=== PATIENT | male | born 1940 | race Caucasian/White ===

== ENCOUNTER 2018-11-16 06:50 | Inpatient (IN) ==
[2018-11-16 07:19] LABS: Hematocrit 47.6 % (42.0-52.0); Hemoglobin 16.3 gm/dL (13.5-18.0); Mean Corpuscular Hemoglobin 32.9 pg (27-31); Mean Corpuscular Hgb Conc 34.2 g/dl (32-36); Neutrophil # 6.8 K/mm3 (1.3-6.0); Platelet Count 121 K/mm3 (150-450); Red Blood Count 4.96 M/mm3 (4.7-6.0); Red Cell Distribution Width 13.9 % (11.5-14.0); White Blood Count 7.9 K/mm3 (4.0-10.5)
[2018-11-16] MEDS ORDERED: MORPHINE SULFATE 2 MG/ML DISP.SYRIN IV ONE (07:28)
[2018-11-16] MEDS ORDERED: ONDANSETRON HCL/PF 2 MG/ML VIAL IV ONE ×2 (07:28→10:41)
--- NOTE | 2018-11-16 07:30 | ERNOTE ---
<Christian Browning - Last Filed: 11/16/18 07:52> Abdominal HPI - General Chief Complaint: Abdominal Pain Time Seen by Provider: 11/16/18 07:17 Source: patient Exam Limitations: no limitations - Immun/Allergies/Home Medications Immunizatons: IMMUNIZATION HX Immunizations Up to Date Yes History of Influenza Vaccine No Hx Pneumococcal Vaccination No Allergies/Adverse Reactions: Allergies peanut Allergy (Severe, Verified 11/16/18 07:00) THROAT SWELLS SHUT codeine Adverse Reaction (Mild, Verified 11/16/18 07:00) BINDING Home Medications: HOME MEDICATIONS Multivitamin [Multi Vitamin Daily] 1 ea PO DAILY 01/14/14 [Last Taken Unknown] tramadol 50 mg tablet 50 mg PO BID tab 03/30/18 [Last Taken Unknown] diphenoxylate-atropine 2.5 mg-0.025 mg tablet 2 tab PO ACHS #360 tab 09/27/18 [Last Taken Unknown] fluoxetine 20 mg capsule 20 mg PO DAILY #90 cap 09/28/18 [Last Taken Unknown] - History of Present Illness Narrative: Pt had onset of abdominal pain last night after eating salmon. continues this am Timing: intermittent Quality: moderate, severe, fullness Modifying Factors - (Improves): Present: movement Modifying Factors - (Worsens): Present: lying down Associated Symptoms: Present: nausea, vomiting Review of Systems - Review of Systems Constitutional: Absent: recent illness, fever, chills ENT: Absent: nose congestion, nasal drainage Respiratory: Absent: shortness of breath, cough Cardiology: Absent: chest pain Gastrointestinal/Abdominal: Present: See HPI, nausea, vomiting, abdominal pain Genitourinary: Absent: frequency, pain, dysuria Musculoskeletal: Absent: back pain Skin: Absent: rash Neurological: Absent: headache, dizziness/light-headedness Endocrine: Present: excessive sweating - only when vomiting this am Hematologic/Lymphatic: Absent: swollen glands Medical History (Last Reviewed 11/16/18 @ 07:26 by Christian Browning DO) Osteoarthritis (Chronic) Onset Date: Unknown IBS (irritable bowel syndrome) (Chronic) Onset Date: Unknown Fibromyalgia (Chronic) Onset Date: Unknown Esophageal stenosis (Chronic) Onset Date: Unknown Diverticulitis of colon (Chronic) Onset Date: Unknown Pierre's esophagus (Chronic) Onset Date: Unknown Asthma (Chronic) Onset Date: Unknown Anxiety disorder (Chronic) Onset Date: ~09/30/12 DJD (degenerative joint disease) Onset Date: Unknown Cancer Onset Date: ~2008 DVT (deep venous thrombosis) Onset Date: ~11/27/13 Dysphagia Onset Date: Unknown Surgical History: Surgical History (Last Reviewed 11/16/18 @ 07:26 by Christian Browning DO) History of cholecystectomy Onset Date: ~2006 History of colon resection Onset Date: ~2008 History of colonoscopy Onset Date: ~10/09/08 History of esophagogastroduodenoscopy (EGD) Onset Date: Unknown History of rectal surgery Onset Date: ~2015 History of toe surgery Onset Date: ~08/2018 History of tonsillectomy Onset Date: Unknown History of total left knee replacement Onset Date: ~11/14/14 Family History: Family History (Last Reviewed 11/16/18 @ 07:26 by Christian Browning DO) Father Myocardial infarction CHF (congestive heart failure) Mother Cancer lung Duodenal anomaly Social History: Preferred Language Danish Do you have any catholic or No cultural preference? Smoking Status Former smoker Have you smoked in the past 12 No months Do you dip or chew tobacco No Alcohol Use occasionally Drug Use none (Last Updated 10/19/18 @ 15:50 by Blank Krueger MD) No Social History Section defined Physical Exam - Physical Exam General Appearance: Present: wd/wn, alert, mild distress Head Exam: Present: normal inspection, no evidence of injury Eye Exam: Normal inspection: bilateral Neck: Present: normal inspection, nontender, supple Respiratory: Present: no respiratory distress, no accessory muscle use, chest nontender, lungs clear Cardiovascular/Chest: Present: regular rate, rhythm, no murmur Gastrointestinal/Abdominal: Present: tenderness - LLQ, RLQ and mild in the epigastrium, abnormal bowel sounds - slightly hyperactive, guarding - mild. Absent: distended, rebound Extremity Exam: Present: normal inspection, normal range of motion, no edema Neurological Exam: Present: alert, oriented, normal mood/affect, no motor/sensory deficits Skin Exam: Present: normal color, warm/dry Lymphatic Exam: Present: no adenopathy Progress - Results and Orders Patient's Lab Results:: I have reviewed the patient's lab results. - Vital Signs Vital Signs: Vital Signs 11/16/18 06:56 Temperature 36.0 C Pulse Rate 81 Respiratory Rate 16 Blood Pressure 155/97 H O2 Sat by Pulse Oximetry 97 - X-Ray X-Ray #1 X-Ray: abdomen Interpretation: Reviewed by me X-ray Comments: IMPRESSION: ABNORMAL BOWEL GAS PATTERN CONSISTENT WITH SMALL BOWEL OBSTRUCTION. Electronically signed by Osman Gold D.O.. - Progress/Reassessment Chief Complaint: Abdominal Pain - Transfer of Care Physician Sign Out: Christian Browning Receiving Physician: Solomon Dow Pending Results: CT/MRI results Expected Disposition: Admit Departure Clinical Impression: Small bowel obstruction - Departure Disposition: Still a patient Condition: Fair Referrals: Blank Krueger MD [Primary Care Provider] - <Solomon Dow - Last Filed: 11/16/18 11:21> Abdominal HPI - Narrative Date of Service: 11/16/18 - Immun/Allergies/Home Medications Immunizatons: IMMUNIZATION HX Immunizations Up to Date Yes History of Influenza Vaccine No Hx Pneumococcal Vaccination No Medical History (Last Reviewed 11/16/18 @ 07:26 by Christian Browning DO) Osteoarthritis (Chronic) Onset Date: Unknown IBS (irritable bowel syndrome) (Chronic) Onset Date: Unknown Fibromyalgia (Chronic) Onset Date: Unknown Esophageal stenosis (Chronic) Onset Date: Unknown Diverticulitis of colon (Chronic) Onset Date: Unknown Pierre's esophagus (Chronic) Onset Date: Unknown Asthma (Chronic) Onset Date: Unknown Anxiety disorder (Chronic) Onset Date: ~09/30/12 DJD (degenerative joint disease) Onset Date: Unknown Cancer Onset Date: ~2008 DVT (deep venous thrombosis) Onset Date: ~11/27/13 Dysphagia Onset Date: Unknown Surgical History: Surgical History (Last Reviewed 11/16/18 @ 07:26 by Christian Browning DO) History of cholecystectomy Onset Date: ~2006 History of colon resection Onset Date: ~2008 History of colonoscopy Onset Date: ~10/09/08 History of esophagogastroduodenoscopy (EGD) Onset Date: Unknown History of rectal surgery Onset Date: ~2015 History of toe surgery Onset Date: ~08/2018 History of tonsillectomy Onset Date: Unknown History of total left knee replacement Onset Date: ~11/14/14 Family History: Family History (Last Reviewed 11/16/18 @ 07:26 by Christian Browning DO) Father Myocardial infarction CHF (congestive heart failure) Mother Cancer lung Duodenal anomaly Social History: Preferred Language Danish Do you have any catholic or No cultural preference? Smoking Status Former smoker Have you smoked in the past 12 No months Do you dip or chew tobacco No Alcohol Use occasionally Drug Use none (Last Updated 10/19/18 @ 15:50 by Blank Krueger MD) No Social History Section defined Progress - Date and Time Seen: Date and Time: 11/16/18 11:19 patient improved, discussed labs and x-rays with patient, case discussed with dr lombardi who accepts patient for admissiion - Vital Signs Patient's Vital Signs:: I have reviewed the patient's vital signs. Vital Signs: Vital Signs 11/16/18 06:56 11/16/18 07:30 11/16/18 08:00 Temperature 36.0 C Pulse Rate 81 82 83 Respiratory Rate 16 15 15 Blood Pressure 155/97 H 178/85 H 185/93 H O2 Sat by Pulse Oximetry 97 96 96 11/16/18 10:30 Temperature Pulse Rate 87 Respiratory Rate 15 Blood Pressure 190/85 H O2 Sat by Pulse Oximetry 95 - CT/Ultrasound CT/Ultrasound Narrative: small bowel obstruction Plan - Plan Plan: to admit to observation.
[2018-11-16 07:33] LABS: Anion Gap 13.5 mmol/L (6.8-13.8); BUN/Creatinine Ratio 15.3 (9.0-21.6); Bilirubin, Total 1.3 mg/dL (0.0-1.1); Ca. Corrected For Albumin 9.3 mg/dL (8.4-10.2); Calcium * 9.6 mg/dL (7.9-10.9); Potassium 4.5 mmol/L (3.4-4.6); Total Protein 7.9 gm/dL (6.2-8.2)
[2018-11-16] MEDS ORDERED: DIATRIZOATE MEGLUMINE, SODIUM 30 ML BTL PO ONE (08:05)
[2018-11-16] MEDS ORDERED: NORMAL SALINE 1,000 ML IV ONE (08:16)
[2018-11-16 09:57] LABS: Urine Bilirubin Negative (NEGATIVE); Urine Ketone Negative (NEGATIVE); Urine Nitrite Negative (NEGATIVE); Urine Protein 30 mg/dL (NEGATIVE); Urine Urobilinogen Normal (NORMAL)
[2018-11-16 10:06] LABS: Urine Appearance Clear (CLEAR); Urine Bacteria None Seen; Urine Blood 5 /ul (NEGATIVE); Urine Color Yellow; Urine WBC TRACE /hpf (0-5)
[2018-11-16 10:07] LABS: Urine Mucus Few - 1+
[2018-11-16] MEDS ORDERED: ONDANSETRON HCL/PF 2 MG/ML VIAL IV PRN ×3 (11:33→13:58)
[2018-11-16] MEDS: NORMAL SALINE 1,000 ML IV PRN ×2 (13:49→22:28)
[2018-11-16] MEDS ORDERED: ACETAMINOPHEN 650 MG SUPP.RECT RC PRN (13:57)
[2018-11-16] MEDS: ENALAPRILAT DIHYDRATE 2.5 MG/2 ML VIAL IV SCH ×2 (14:24→20:02)
[2018-11-16] MEDS: ENOXAPARIN SODIUM 40 MG/0.4 ML SYRG SC SCH (14:24)
[2018-11-16] MEDS ORDERED: HYDROmorphone HCL 1 MG/ML DISP.SYRIN IV PRN (15:22)
--- NOTE | 2018-11-16 16:59 | CONS ---
[facility] - General Date of Service: 11/16/18 Source: patient, family, RN/MD, RN notes reviewed, old records Exam Limitations: no limitations - History of Present Illness Initial Comments: He started having lower abdominal pain last night. The pain persisted and became severe, and when he started vomiting he presented to the emergency room today. The pain is constant and sharp 7/10. It does not hurt if he moves or coughs. He has never had pain of this nature before. He states his last bowel movement or passage of gas was perhaps on 11/14/2018. Evaluation in the emergency room included an abdominal x-ray which suggested possible obstruction. A CT scan with oral contrast shows dilated proximal small bowel down to the terminal ileum which appears to be kinked low in the pelvis with a short segment of collapsed ileum connecting to the cecum. He was admitted for small bowel obstruction and I was consulted. 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 This was performed in March 2009 at the [facility]. He had postoperative external beam radiation therapy and FOLFOX chemotherapy. He has been followed for this primarily by the [facility], however his last EGD and surveillance colonoscopy were done in September 2017 at [facility]. His initial colonoscopy was actually done here in September 2008. There was a large polyp which could not be completely removed and was tattooed. The biopsy showed tubular adenoma and he was actually recommended surgery. He was apparently resistant to that at that time and had a subsequent CT scan which showed narrowing at the rectosigmoid junction and he underwent an additional colonoscopy in February 2009 with the findings of adenocarcinoma. He was subsequently referred to the [facility] due to the low nature of the lesion. He has a long-standing problem with fecal incontinence and inability to completely empty his rectum. He manages by taking 3 Lomotil tablets twice a day, and he had placement of a Sacral Nerve Stimulator at the [facility] in July 2016. His last visit with the Gastrointestinal Surgery, Minimally Invasive and Bariatric Surgery division from February 2018 is in [place]--there was discussion at that visit of even doing a colostomy for his problem. There is a subsequent visit note from [facility] 09/20/2018 regarding a bowel training visit. He has a long history of upper GI difficulty as well. He presented in 2005 with an impacted meat bolus which required endoscopy to remove. He had subsequent EGDs for dilation of a distal esophageal sphincter in September 2006 in May 2008. His most recent EGD here was in June 2010 when he was found to have Pierre's esophagus with possible low-grade dysplasia. There was no Pierre's esophagus or stricture in September 2017 on EGD at [facility]. The patient initially was resistant to having a nasogastric tube placed due to past experiences, however after discussion he has agreed to have that done Timing/Duration: constant, other - Pain started last night Severity: moderate Modifying Factors - (Worsens): Reports: eating Associated Symptoms: nausea, vomiting Allergies/Adverse Reactions: Allergies peanut Allergy (Severe, Verified 11/16/18 12:16) THROAT SWELLS SHUT codeine Adverse Reaction (Mild, Verified 11/16/18 12:16) BINDING Home Medications: Home Medications Medication Instructions Recorded Last Taken Multivitamin [Multi Vitamin Daily] 1 ea PO DAILY 01/14/14 Unknown tramadol 50 mg tablet 50 mg PO DAILY tab 03/30/18 Unknown diphenoxylate-atropine 2.5 2 tab PO ACHS #360 tab 09/27/18 Unknown mg-0.025 mg tablet fluoxetine 20 mg capsule 20 mg PO DAILY #90 cap 09/28/18 Unknown Procedures Cholecystectomy (06/04/04) Closure of skin and subcutaneous tissue of other sites (06/02/14) Dilation of esophagus (05/22/08) Endoscopic polypectomy of large intestine (02/26/09) Esophagogastroduodenoscopy [EGD] with closed biopsy (06/23/10) Ethmoidectomy (09/26/14) Excision of lesion of maxillary sinus with other approach (09/26/14) Injection or infusion of other therapeutic or prophylactic substance (02/26/09) Intranasal antrotomy (09/26/14) Other diagnostic procedures on nasal sinuses (09/26/14) Other endoscopy of small intestine (09/02/06) Other septoplasty (09/26/14) Removal of intraluminal foreign body from esophagus without incision (09/02/06) Medications - Medications Current Medications: Current Medications Enalaprilat (Vasotec) 2.5 mg IV Q6H [facility] Stop: 12/16/18 14:01 Last Admin: 11/16/18 14:24 Dose: 2.5 mg Documented by: Enoxaparin Sodium (Lovenox) 40 mg SC Q24H [facility] Stop: 12/16/18 14:01 Last Admin: 11/16/18 14:24 Dose: 40 mg Documented by: Hydromorphone HCl (Dilaudid) 0.5 mg IV Q1H PRN PRN Reason: Severe Pain (pain scale 7-10) Stop: 12/16/18 15:23 Last Admin: 11/16/18 15:32 Dose: 0.5 mg Documented by: Sodium Chloride (Sodium Chloride 0.9%) 1,000 mls @ 125 mls/hr IV .Q8H PRN PRN Reason: HYDRATION Stop: 12/16/18 11:34 Last Admin: 11/16/18 13:49 Dose: 125 mls/hr Documented by: Review of Systems - Review of Systems Generalized/Overall Review: Absent: Chills, Fever EENTM: Present: No Symptoms Reported Respiratory: Present: No Symptoms Reported Cardiac: Present: No Symptoms Reported Abdominal: Present: Nausea, Vomiting, Abdominal Pain, Other - Obstipation since 11/14/2018 Genitourinary: Present: No Symptoms Reported Musculoskeletal: Present: No Symptoms Reported Neurological: Present: No Symptoms Reported Skin: Present: No Symptoms Reported Physical Examination - Exam Vital Signs: Vital Signs - Last Taken Temp 36.0 C 11/16/18 12:05 Pulse 91 11/16/18 14:24 Resp 16 11/16/18 12:19 BP 167/97 H 11/16/18 14:24 Pulse Ox 98 11/16/18 12:19 O2 Oxygen Delivery Method Room Air Constitutional: Present: Alert, Oriented x3, Cooperative, Well nourished, Mild distress ENT Exam: Present: normal ENT inspection Neck: Present: full range of motion, normal inspection Respiratory: Present: no respiratory distress Cardiovascular/Chest: Present: regular rate, rhythm Abdomen: Present: other - Distended but soft. Well-healed low midline surgery incision. Tender across the lower abdomen, however no rebound tenderness /Rectal: Present: Exam deferred Extremity: Present: normal range of motion Skin Exam: Present: pallor Neurologic: Present: pathologist assistant II-XII nml as tested, normal cerebellar test, no motor/sensory deficits Appearance: Present: appropriate appearance, appropriate insight, neat Eye contact: Present: cooperative, good eye contact, normal speech Thoughts: Present: normal thought pattern - Results and Findings: Narrative: The patient appears to have an obstruction, either high-grade partial or complete, in the very distal ileum in the pelvis. This is in an area of previous surgery and radiation. After discussion with the patient and his , a 18 [place] nasogastric tube was placed. The patient vomited a large amount of dark bilious material and more was suctioned through the tube. An x-ray confirmed good tube placement and the tube was placed to low intermittent suction. The x-ray after tube placement incidentally mentions a pulmonary nodule. Although CT scan was recommended, it would be prudent to review the patient's outside records to see if this is indeed a new finding, or if it has been previously investigated elsewhere. Orders have been written for analgesia and IV Protonix is added due to his history of GERD. Hopefully nonoperative decompression will be successful as surgical intervention would be very difficult and should be deferred to the [facility]. In his situation it may be acceptable to wait even 48 hours prior to considering transfer. I have discussed the case with Dr. Olmos. Will monitor the NG output and patient progress closely. Lab/Microbiology results last 24 hrs: Abnormal/Pending Laboratory Last 24 HRS 11/16/18 11/16/18 11/16/18 09:46 07:12 07:12 MCH 32.9 H Plt Count 121 L Neutrophils % 86.0 H Lymphocytes % 8.9 L Neutrophils # 6.8 H Lymphocytes # 0.70 L Random Glucose 136 H Total Bilirubin 1.3 H Lipase 68 L Urine Protein 30 H Urine Blood 5 H Urine RBC 5-10 H Urine Mucus Few - 1+ H Abdomen x-rays and CT scan images and reports reviewed - Assessments/Findings (1) Small bowel obstruction Problem: Acute
[2018-11-16] MEDS: PANTOPRAZOLE SODIUM 40 MG in NORMAL SALINE 100 ML IV SCH (17:02)
--- NOTE | 2018-11-16 17:17 | HP ---
Chief Complaint - Chief Complaint Date of Service: 11/16/18 Time of Service: 14:00 Chief Complaint: Severe abdominal pain, nausea with vomiting, weakness. History of Present Illness: This is a 78-year-old white male who presents with nausea vomiting and abdominal pain to the emergency room. Workup in the ER included a CT scan which shows a small bowel obstruction at the distal terminal ileum. There are a couple of other areas that look either inflamed or perhaps could represent metastatic disease from his colon cancer that he had in the past. He had a colon resection with a rectosigmoid anastomosis. This was followed by radiation. He'll be admitted to decompress his abdomen and quiet his nausea vomiting and control his pain. I have asked Dr. Lopez to see him in consultation. Medical History (Last Updated 11/16/18 @ 12:30 by Alexandra Lazaro RN) Osteoarthritis (Chronic) Onset Date: Unknown IBS (irritable bowel syndrome) (Chronic) Onset Date: Unknown Fibromyalgia (Chronic) Onset Date: Unknown Esophageal stenosis (Chronic) Onset Date: Unknown Diverticulitis of colon (Chronic) Onset Date: Unknown Pierre's esophagus (Chronic) Onset Date: Unknown Asthma (Chronic) Onset Date: Unknown Anxiety disorder (Chronic) Onset Date: ~09/30/12 H/O implanted metallic device Onset Date: ~2011 implant to help regulate bowels Liver fibrosis DJD (degenerative joint disease) Onset Date: Unknown Cancer Onset Date: ~2008 DVT (deep venous thrombosis) Onset Date: ~11/27/13 Dysphagia Onset Date: Unknown Surgical History: Surgical History (Last Reviewed 11/16/18 @ 12:16 by Alexandra Lazaro RN) History of cholecystectomy Onset Date: ~2006 History of colon resection Onset Date: ~2008 History of colonoscopy Onset Date: ~10/09/08 History of esophagogastroduodenoscopy (EGD) Onset Date: Unknown History of rectal surgery Onset Date: ~2015 History of toe surgery Onset Date: ~08/2018 History of tonsillectomy Onset Date: Unknown History of total left knee replacement Onset Date: ~11/14/14 Family History: Family History (Last Reviewed 11/16/18 @ 12:16 by Alexandra Lazaro RN) Father Myocardial infarction CHF (congestive heart failure) Mother Cancer lung Duodenal anomaly Social History: Patient Lives/Resources Home Utilized Occupation Retired Preferred Language Hungarian Do you have any advent or No cultural preference? Smoking Status Former smoker Have you smoked in the past 12 No months Do you dip or chew tobacco No Alcohol Use occasionally Drug Use none (Last Updated 10/19/18 @ 15:50 by Blank Krueger MD) No Social History Section defined Review Of Systems (GEN) - Review of Systems Generalized/Overall Review: Present: Weakness, Chills, Fever EENTM: Present: No Symptoms Reported Respiratory: Present: No Symptoms Reported Cardiac: Present: No Symptoms Reported Abdominal: Present: Nausea, Vomiting, Abdominal Pain Genitourinary: Present: No Symptoms Reported Musculoskeletal: Present: No Symptoms Reported Neurological: Present: No Symptoms Reported Skin: Present: No Symptoms Reported Endocrine: Present: No Symptoms Reported Immunizations: IMMUNIZATION HX Immunizations Up to Date Yes History of Influenza Vaccine No Hx Pneumococcal Vaccination No Allergies/Adverse Reactions: Allergies Allergy/AdvReac Type Severity Reaction Status Date / Time peanut Allergy Severe THROAT Verified 11/16/18 12:16 SWELLS SHUT codeine AdvReac Mild BINDING Verified 11/16/18 12:16 Home Medications: HOME MEDICATIONS Multivitamin [Multi Vitamin Daily] 1 ea PO DAILY 01/14/14 [Last Taken Unknown] tramadol 50 mg tablet 50 mg PO DAILY tab 03/30/18 [Last Taken Unknown] diphenoxylate-atropine 2.5 mg-0.025 mg tablet 2 tab PO ACHS #360 tab 09/27/18 [Last Taken Unknown] fluoxetine 20 mg capsule 20 mg PO DAILY #90 cap 09/28/18 [Last Taken Unknown] Exam - Exam Vital Signs: Vital Signs - Last Taken Temp 36.0 C 11/16/18 12:05 Pulse 91 11/16/18 14:24 Resp 16 11/16/18 12:19 BP 167/97 H 11/16/18 14:24 Pulse Ox 98 11/16/18 12:19 Constitutional: Present: Alert, Oriented x3, Cooperative, Moderate distress, Elderly ENT Exam: Present: normal ENT inspection, hearing grossly normal, pharynx normal, TMs normal Eye Exam: bilateral eye: normal inspection, PERRL, EOMI Neck: Present: non-tender, full range of motion, supple, normal inspection Back Exam: Present: normal inspection, no CVA tenderness, no vertebral tenderness Respiratory: Present: chest non-tender, lungs clear, normal breath sounds, no respiratory distress, no accessory muscle use Cardiovascular/Chest: Present: normal peripheral pulses, regular rate, rhythm, no chest tenderness, other - Blood pressure is elevated Peripheral Pulses: carotid (R): 2+, carotid (L): 2+, radial (R): 2+, radial (L): 2+ Abdomen: Present: no bowel sounds. Absent: distended, high pitched bowel sounds /Rectal: Present: Exam deferred Extremity: Present: normal range of motion, non-tender, normal inspection, no pedal edema, no calf tenderness, normal capillary refill Skin Exam: Present: normal color, warm/dry, no cyanosis Lymphatic: Present: no adenopathy, axilla node tender (R) Neurologic: Present: correctional facility psychiatrist II-XII nml as tested, normal cerebellar test, no motor/sensory deficits, alert, normal mood/affect, oriented x 3 Appearance: Present: appropriate appearance, appropriate insight, neat, no memory impairment Eye contact: Present: cooperative, good eye contact, normal speech Thoughts: Present: normal thought pattern, no apparent hallucination Diagnostic Studies: Abnormal Lab Results 11/16/18 11/16/18 11/16/18 Range/Units 07:12 07:12 09:46 MCH 32.9 H (27-31) pg Plt Count 121 L (150-450) K/mm3 Neutrophils % 86.0 H (42-75.0) % Lymphocytes % 8.9 L (20-51) % Neutrophils # 6.8 H (1.3-6.0) K/mm3 Lymphocytes # 0.70 L (1.5-3.5) k/mm3 Random Glucose 136 H (70-110) mg/dL Total Bilirubin 1.3 H (0.0-1.1) mg/dL Lipase 68 L (73-393) U/L Urine Protein 30 H (NEGATIVE) mg/dL Urine Blood 5 H (NEGATIVE) /ul Urine RBC 5-10 H (0-5) /hpf Urine Mucus Few - 1+ H (NONE) Laboratory Results WBC 7.9 K/mm3 (4.0-10.5) 11/16/18 07:12 RBC 4.96 M/mm3 (4.7-6.0) 11/16/18 07:12 Hgb 16.3 gm/dL (13.5-18.0) 11/16/18 07:12 Hct 47.6 % (42.0-52.0) 11/16/18 07:12 MCV 96.0 fl (78-100) 11/16/18 07:12 MCH 32.9 pg (27-31) H 11/16/18 07:12 MCHC 34.2 g/dl (32-36) 11/16/18 07:12 RDW 13.9 % (11.5-14.0) 11/16/18 07:12 Plt Count 121 K/mm3 (150-450) L 11/16/18 07:12 MPV 10.0 fl (8-11.3) 11/16/18 07:12 Immature Gran % (Auto) 0.30 % (0.001-0.429) 11/16/18 07:12 Immature Gran # (Auto) 0.02 K/mm3 (0.000-0.0310) 11/16/18 07:12 Neutrophils % 86.0 % (42-75.0) H 11/16/18 07:12 Lymphocytes % 8.9 % (20-51) L 11/16/18 07:12 Monocytes % 4.2 % (0.0-9) 11/16/18 07:12 Eosinophils % 0.3 % (0.0-3.0) 11/16/18 07:12 Basophils % 0.3 % (0.0-1.0) 11/16/18 07:12 Nucleated RBC % 0.0 k/mm3 (0-1) 11/16/18 07:12 Neutrophils # 6.8 K/mm3 (1.3-6.0) H 11/16/18 07:12 Lymphocytes # 0.70 k/mm3 (1.5-3.5) L 11/16/18 07:12 Monocytes # 0.3 k/mm3 (0.0-1.0) 11/16/18 07:12 Eosinophils # 0.0 k/mm3 (0.0-0.7) 11/16/18 07:12 Absolute Basophils 0.0 k/mm3 (0.0-0.1) 11/16/18 07:12 Sodium 138 mmol/L (132-142) 11/16/18 07:12 Plasma Sodium 139 mmol/L (130-142) 11/16/18 07:12 Potassium 4.5 mmol/L (3.4-4.6) 11/16/18 07:12 Chloride 99 mmol/L (97-106) 11/16/18 07:12 Carbon Dioxide 30.0 mmol/L (24-32.6) 11/16/18 07:12 Anion Gap 13.5 mmol/L (6.8-13.8) 11/16/18 07:12 BUN 15 mg/dL (6-23) 11/16/18 07:12 Creatinine 0.98 mg/dL (0.4-1.4) 11/16/18 07:12 Est GFR (Non-Af Amer) 79 mL/min (60-130) 11/16/18 07:12 BUN/Creatinine Ratio 15.3 (9.0-21.6) 11/16/18 07:12 Random Glucose 136 mg/dL (70-110) H 11/16/18 07:12 Calcium 9.6 mg/dL (7.9-10.9) 11/16/18 07:12 Calcium Adj for Albumin 9.3 mg/dL (8.4-10.2) 11/16/18 07:12 Total Bilirubin 1.3 mg/dL (0.0-1.1) H 11/16/18 07:12 AST 45 U/L (0-48) 11/16/18 07:12 ALT 44 U/L (19-67) 11/16/18 07:12 Alkaline Phosphatase 74 U/L (50-170) 11/16/18 07:12 Total Protein 7.9 gm/dL (6.2-8.2) 11/16/18 07:12 Albumin 4.0 gm/dl (3.4-5.0) 11/16/18 07:12 Amylase 34 U/L (25-115) 11/16/18 07:12 Lipase 68 U/L (73-393) L 11/16/18 07:12 Urine Color Yellow 11/16/18 09:46 Urine Appearance Clear (CLEAR) 11/16/18 09:46 Urine pH 7.0 pH (5.0-7.0) 11/16/18 09:46 Ur Specific [place] 1.020 SP.GR. (1.005-1.030) 11/16/18 09:46 Urine Protein 30 mg/dL (NEGATIVE) H 11/16/18 09:46 Urine Glucose (UA) Negative mg/dL (NEGATIVE) 11/16/18 09:46 Urine Ketones Negative mg/dL (NEGATIVE) 11/16/18 09:46 Urine Blood 5 /ul (NEGATIVE) H 11/16/18 09:46 Urine Nitrate Negative (NEGATIVE) 11/16/18 09:46 Urine Bilirubin Negative mg/dl (NEGATIVE) 11/16/18 09:46 Prot Sulfosalicylic Acd 1+ mg/dL (0) 11/16/18 09:46 Urine Urobilinogen Normal EU/dl (NORMAL) 11/16/18 09:46 Ur Leukocyte Esterase Negative /ul (NEGATIVE) 11/16/18 09:46 Urine RBC 5-10 /hpf (0-5) H 11/16/18 09:46 Urine WBC Trace /hpf (0-5) 11/16/18 09:46 Ur Epithelial Cells 0-5 /hpf (0-5) 11/16/18 09:46 Urine Bacteria None seen (NONE) 11/16/18 09:46 Urine Mucus Few - 1+ (NONE) H 11/16/18 09:46 Urine Culture Comments No culture indicated 11/16/18 09:46 Assessment/Plan - Narrative Narrative: 1. NG tube to low intermittent suction 2. IV fluids 3. IV antiemetics and analgesics 4. Surgical consultation with Dr. Lopez 5. Hold all oral medications. 6. Start IV enalapril to have milligrams IV push every 6 hours as needed for hypertension - Assessment/Plan (1) Nausea and vomiting Problem: Acute Qualifiers: Vomiting type: bilious vomiting Qualified Code(s): R11.14 - Bilious vomiting (2) Pulmonary nodule Problem: Acute (3) Small bowel obstruction Problem: Acute (4) Anxiety disorder Problem: Chronic Qualifiers: Anxiety disorder type: generalized anxiety disorder Qualified Code(s): F41.1 - Generalized anxiety disorder
[2018-11-16] MEDS ORDERED: PHENOL 180 SPRAY BTL MM PRN (20:25)
[2018-11-17] MEDS: ENALAPRILAT DIHYDRATE 2.5 MG/2 ML VIAL IV SCH ×4 (02:43→20:29)
--- NOTE | 2018-11-17 11:11 | PN ---
Subjective - Date and Time Seen Date: 11/17/18 Time: 11:06 Subjective Narrative: He had several large loose bowel movements last night. There is been minimal NG output since. He states he feels "only about 25% of what it was". There is still some tenderness when he pushes on the lower abdomen. Abdominal x-ray shows passage of the enteric contrast into the colon. There are still some dilated loops of small intestine. The patient states that in retrospect for about 3 weeks his pants have been fitting much tighter and his abdomen has been somewhat distended Objective - Review of Systems Generalized/Overall Review: Denies: Chills, Fever EENTM: Reports: Other - Sore throat from the NG tube Respiratory: Reports: No Symptoms Reported Cardiac: Reports: No Symptoms Reported Abdominal: Reports: Other - He was incontinent of stool last night Genitourinary Symptoms: Reports: No Symptoms Reported Musculoskeletal Complaints: Reports: No Symptoms Reported Neurological: Reports: No Symptoms Reported - Vitals Vitals: Last Vital Signs Temp 37.1 C 11/17/18 06:55 Pulse 78 11/17/18 08:49 Resp 12 11/17/18 06:55 BP 128/59 11/17/18 08:49 Pulse Ox 96 11/17/18 06:55 - EKG/Xray Findings XRAY: Abdominal x-ray Interpretation: Reviewed by me - Exam Constitutional: Present: Alert, Oriented x3, Cooperative, No distress ENT Exam: Present: normal ENT inspection Neck: Present: full range of motion Respiratory: Absent: no respiratory distress Cardiovascular/Chest: Present: regular rate, rhythm Abdomen: Present: other - He has a few bowel sounds. He is soft there is no percussion or rebound tenderness Assessment/Plan Plan Narrative: He states he has difficulty swallowing with the NG tube in place, however he is amenable to trial clamping the NG and clear liquids. Encouraged him to ambulate as this will help with bowel function. If he tolerates the liquids the tube could be removed later today. The case was discussed with Dr. Olmos. - Problems/Diagnosis (1) Small bowel obstruction Problem: Acute
--- NOTE | 2018-11-17 11:15 | PN ---
Subjective - Date and Time Seen Date: 11/17/18 Time: 08:25 Subjective Narrative: Mr. Schroeder has had an uneventful night. The nurses called me last night to tell me that he had some rales in his right lung base and that at sleep his oxygen saturation was 88% on room air. I had them saline lock his IV and place him on oxygen at 2 L nasal cannula which he remained on this morning. He had an order to go to x-ray this morning and his NG tube was clamped to go there. Upon his return I maintained the NG clamp for 2 hours and then undid the clamp and put back to suction to see how much residual and at this point there has been 0 residual returned. Also, last night he had a bowel movement. His bowel movements are usually loose to watery because of his previous partial colon resection. His was wanting to know if Lomotil might have caused the obstruction. I advised that it may have aggravated it but that there is a mechanical reason for the obstruction. Dr. Lopez has consulted and I will let him make a decision as to when to pull the NG tube. Objective - Review of Systems Generalized/Overall Review: Reports: Weakness. Denies: Chills, Fever EENTM: Reports: No Symptoms Reported, Throat Pain Respiratory: Reports: Other - Mild hypoxemia while sleeping with O2 sat of 88% last night also rales detected in the right lung base. Cardiac: Reports: No Symptoms Reported Abdominal: Reports: Abdominal Pain - Resolved. He does have some focal pain on palpation in the right lower quadrant at the cecal area which is consistent with where the obstruction was. Genitourinary Symptoms: Reports: No Symptoms Reported Musculoskeletal Complaints: Reports: No Symptoms Reported Neurological: Reports: No Symptoms Reported Skin: Reports: No Symptoms Reported Endocrine: Reports: No Symptoms Reported - Vitals Vitals: Last Vital Signs Temp 37.1 C 11/17/18 06:55 Pulse 78 11/17/18 08:49 Resp 12 11/17/18 06:55 BP 128/59 11/17/18 08:49 Pulse Ox 96 11/17/18 06:55 - Exam Constitutional: Present: Alert, Oriented x3, Cooperative, Well developed, Well nourished, No distress ENT Exam: Present: normal ENT inspection, hearing grossly normal, pharynx normal, TMs normal Neck: Present: non-tender, full range of motion, supple, normal inspection, limited range of motion Breasts: Present: Exam deferred Respiratory: Present: chest non-tender, lungs clear, normal breath sounds Cardiovascular/Chest: Present: normal peripheral pulses, regular rate, rhythm, no chest tenderness, no edema Abdomen: Present: hypoactive /Rectal: Present: Exam deferred Extremity: Present: normal range of motion, non-tender, normal inspection, no pedal edema, no calf tenderness Skin Exam: Present: normal color, warm/dry, no cyanosis Lymphatic: Present: no adenopathy Neurologic: Present: maintenance technician 3rd shift II-XII nml as tested Appearance: Present: appropriate appearance, appropriate insight, neat Eye contact: Present: cooperative, good eye contact, normal speech, avoids eye contact Thoughts: Present: normal thought pattern, no apparent hallucination Assessment/Plan Plan Narrative: 1. Continue to keep the NG tube clamped 2. Introduce clear liquid diet 3. Ambulate in the halls 3 times a day to tolerance 4. Unclamp the NG tube if he develops nausea and took the tube back to section 5. I had a good discussion with Dr. Lopez this morning. He has reviewed his charts for the past several years going back into the [employer] charts and found that he had had polyps and a tumor developed. He has been trying a lot of different supplements to try to control diarrhea. He believes that there may be a chronic high grade stenosis at the distal ileum near the cecum. He doesn't think that we should pursue working up the pulmonary nodule here as [facility]. Mr. Schroeder has an upcoming appointment with his oncology people at the [facility] and I will defer that evaluation to them. - Problems/Diagnosis (1) Nausea and vomiting Problem: Resolved Qualifiers: Vomiting type: bilious vomiting Qualified Code(s): R11.14 - Bilious vomiting (2) Pulmonary nodule Problem: Acute (3) Small bowel obstruction Problem: Resolved (4) Anxiety disorder Problem: Chronic Qualifiers: Anxiety disorder type: generalized anxiety disorder Qualified Code(s): F41.1 - Generalized anxiety disorder
[2018-11-17] MEDS: ENOXAPARIN SODIUM 40 MG/0.4 ML SYRG SC SCH (15:14)
[2018-11-17] MEDS: PANTOPRAZOLE SODIUM 40 MG in NORMAL SALINE 100 ML IV SCH (17:00)
[2018-11-18] MEDS: ENALAPRILAT DIHYDRATE 2.5 MG/2 ML VIAL IV SCH ×3 (02:36→14:03)
--- NOTE | 2018-11-18 10:57 | PN ---
Subjective - Date and Time Seen Date: 11/18/18 Time: 10:51 Objective Objective Narrative: He has tolerated clear liquids with the NG tube clamped. He is passing gas. He states he is still somewhat sore in the lower abdomen but nothing like when he came in. His vital signs have been normal, however blood pressure has been slightly elevated. He had a clear liquid breakfast around 8 AM. Connecting the NG tube to suction produces no output. - Review of Systems Generalized/Overall Review: Denies: Chills, Fever EENTM: Reports: Other - Soreness from the NG tube Respiratory: Denies: Shortness of Breath Cardiac: Denies: Chest Pain Abdominal: Reports: Other - His abdomen feels better. He thinks it is back to baseline Genitourinary Symptoms: Reports: No Symptoms Reported Musculoskeletal Complaints: Reports: No Symptoms Reported Neurological: Reports: No Symptoms Reported - Vitals Vitals: Last Vital Signs Temp 36.5 C 11/18/18 08:44 Pulse 76 11/18/18 08:51 Resp 16 11/18/18 08:44 BP 141/74 11/18/18 08:51 Pulse Ox 94 11/18/18 08:44 - Exam Constitutional: Present: Alert, Oriented x3, Cooperative, No distress ENT Exam: Present: normal ENT inspection Neck: Present: full range of motion, normal inspection Respiratory: Present: no respiratory distress Abdomen: Present: soft, nontender, other - Somewhat tympanitic to percussion but no percussion tenderness or discrete direct tenderness Extremity: Present: normal range of motion Skin Exam: Present: normal color Assessment/Plan Plan Narrative: His nasogastric tube was removed. His diet could be advanced with discharge if he tolerates that. Discussed the situation with the patient and his . We do not have abdominal x-rays from prior to his current episode, and he may have a chronic low-grade partial obstruction all the time (he does complain that his abdomen is been more distended over the last several weeks). They had been doing traveling with 10 hours in the car just prior to this current episode. He knows the signs and symptoms should he have a recurrent obstruction, and he should present for evaluation. I did reiterate that any surgery would be difficult due to his previous surgery and radiation, and that nonoperative management would be preferable. - Problems/Diagnosis (1) Small bowel obstruction Problem: Resolved
[2018-11-18] MEDS: ENOXAPARIN SODIUM 40 MG/0.4 ML SYRG SC SCH (14:03)
--- NOTE | 2018-11-18 15:17 | DS ---
(1) Small bowel obstruction Problem: Resolved Description of Stay: Everett is a 78 yo male with a small bowel obstruction who was admitted for management of pain and obstruction. General surgery was consulted. He was given an NG tube and made NPO. NG was placed on suction. He began improving and NG was clamped and he was trialed on clears. He tolerated this well and NG was removed and diet was advanced. He tolerated this well and will be discharged to home. Procedures Performed: see notes below List Procedures: NG Placement NG Removal Results and Findings: Lab Pending Results 11/16/18 07:12: WBC 7.9, RBC 4.96, Hgb 16.3, Hct 47.6, MCV 96.0, MCH 32.9 H, MCHC 34.2, RDW 13.9, Plt Count 121 L, MPV 10.0, Immature Gran % (Auto) 0.30, Immature Gran # (Auto) 0.02, Neutrophils % 86.0 H, Lymphocytes % 8.9 L, Monocytes % 4.2, Eosinophils % 0.3, Basophils % 0.3, Nucleated RBC % 0.0, Neutrophils # 6.8 H, Lymphocytes # 0.70 L, Monocytes # 0.3, Eosinophils # 0.0, Absolute Basophils 0.0 11/16/18 07:12: Sodium 138, Plasma Sodium 139, Potassium 4.5, Chloride 99, Carbon Dioxide 30.0, Anion Gap 13.5, BUN 15, Creatinine 0.98, Est GFR (Non-Af Amer) 79, BUN/Creatinine Ratio 15.3, Random Glucose 136 H, Calcium 9.6, Calcium Adj for Albumin 9.3, Total Bilirubin 1.3 H, AST 45, ALT 44, Alkaline Phosphatase 74, Total Protein 7.9, Albumin 4.0, Amylase 34, Lipase 68 L 11/16/18 09:46: Urine Color Yellow, Urine Appearance Clear, Urine pH 7.0, Ur Specific [place] 1.020, Urine Protein 30 H, Urine Glucose (UA) Negative, Urine Ketones Negative, Urine Blood 5 H, Urine Nitrate Negative, Urine Bilirubin Negative, Prot Sulfosalicylic Acd 1+, Urine Urobilinogen Normal, Ur Leukocyte Esterase Negative, Urine RBC 5-10 H, Urine WBC Trace, Ur Epithelial Cells 0-5, Urine Bacteria None seen, Urine Mucus Few - 1+ H, Urine Culture Comments No culture indicated Discharge Location: Home Disposition: Home self-care Condition: Fair Discharge Activity: Activity as tolerated Discharge Diet: General/regular food Referrals: Blank Krueger MD [Primary Care Provider] - One Week Additional Patient Instructions (free text): -Please make TCM appointment unless prison discharge. Thank you! Lyn @ [phone]. Complete Home Medications List: Complete Home Medication List: Multivitamin [Multi Vitamin Daily] 1 ea PO DAILY 01/14/14 tramadol 50 mg tablet 50 mg PO DAILY tab 03/30/18 diphenoxylate-atropine 2.5 mg-0.025 mg tablet 2 tab PO ACHS #360 tab 09/27/18 fluoxetine 20 mg capsule 20 mg PO DAILY #90 cap 09/28/18
[2018-11-18 16:51] VITALS: BP 158/73
[2018-11-18] MEDS: PANTOPRAZOLE SODIUM 40 MG in NORMAL SALINE 100 ML IV SCH (16:55)
== END 2018-11-18 16:43 | disposition home or self-care (01) | DRG 390 ==
LOC: ER 06:50 → MS 06:50
PROVIDERS: ADMIT Family Medicine; ATTEND Family Medicine
CPT/HCPCS: 36415; 71010; 71045; 74019; 74020; 74177; 80053; 81001; 82150; 83690; 85025; 96361; 96374; 96375; 96376; 99283; J2405; Q9967

== ENCOUNTER 2019-06-08 15:04 | Observation (INO) ==
[2019-06-08] MEDS ORDERED: DILTIAZEM HCL 5 MG/ML VIAL IV ONE ×2 (15:30→15:35)
[2019-06-08 16:08] LABS: Troponin I 0.029 ng/mL (0.00-0.10)
[2019-06-08] MEDS ORDERED: DILTIAZEM HCL 125 MG in DEXTROSE 5 % IN WATER 100 ML IV PRN ×2 (16:34)
--- NOTE | 2019-06-08 16:42 | ERNOTE ---
Dyspnea - Date Date of Service: 06/08/19 - General Presenting Symptoms: shortness of breath, other - rapid irregular heart rate Time Seen by Provider: 06/08/19 15:20 Source: patient, family - Immun/Allergies/Home Medications Immunizations: IMMUNIZATION HX Immunizations Up to Date Yes History of Influenza Vaccine No Hx Pneumococcal Vaccination No Allergies/Adverse Reactions: Allergies peanut Allergy (Severe, Verified 06/08/19 13:33) THROAT SWELLS SHUT codeine Adverse Reaction (Mild, Verified 06/08/19 13:33) BINDING Home Medications: HOME MEDICATIONS fluoxetine 20 mg capsule 20 mg PO DAILY #90 cap 09/28/18 [Last Taken Unknown] diphenoxylate-atropine 2.5 mg-0.025 mg tablet 2 tab PO ACHS #360 tab 01/08/19 [Last Taken Unknown] furosemide 40 mg tablet 40 mg PO DAILY #4 tab 06/01/19 [Last Taken Unknown] alprazolam 0.5 mg tablet 0.5 mg PO HS PRN #30 tab 06/04/19 [Last Taken Unknown] furosemide 20 mg tablet 20 mg PO DAILY #30 tab 06/04/19 [Last Taken Unknown] - History of Present Illness Narrative: patient sent from [facility] [place] with acute onset of a-fib with rvr Severity: moderate 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 Frequency of episodes: Reports: no prior episodes Modifying Factors - (Improves): Reports: nothing Modifying Factors (Worsens): Reports: nothing Associated Symptoms-Dyspnea: Reports: palpitations, lightheadedness Prior Treatment: Reports: recently seen, treated by physician Review of Systems - Review of Systems Constitutional: Present: See HPI, weakness, fatigue, malaise EYE: Present: no symptoms reported ENT: Present: no symptoms reported Respiratory: Present: no symptoms reported Cardiology: Present: no symptoms reported Gastrointestinal/Abdominal: Present: no symptoms reported Genitourinary: Present: no symptoms reported Musculoskeletal: Present: no symptoms reported Skin: Present: no symptoms reported Neurological: Present: no symptoms reported Endocrine: Present: no symptoms reported Hematologic/Lymphatic: Present: no symptoms reported Psych: Present: no symptoms reported All Other Systems: All systems neg except as marked Medical History (Updated 06/01/19 @ 16:58 by Berenice Adkins DNP) Osteoarthritis (Chronic) Onset Date: Unknown IBS (irritable bowel syndrome) (Chronic) Onset Date: Unknown Fibromyalgia (Chronic) Onset Date: Unknown Esophageal stenosis (Chronic) Onset Date: Unknown Diverticulitis of colon (Chronic) Onset Date: Unknown Pierre's esophagus (Chronic) Onset Date: Unknown Asthma (Chronic) Onset Date: Unknown Anxiety disorder (Chronic) Onset Date: ~09/30/12 H/O implanted metallic device Onset Date: ~2011 implant to help regulate bowels Interstim implant sacral neoromodulation Liver fibrosis Nonalcoholic steatohepatitis (GUTIERREZ) Onset Date: ~2017 DJD (degenerative joint disease) Onset Date: Unknown Cancer Onset Date: ~2008 DVT (deep venous thrombosis) Onset Date: ~11/27/13 Dysphagia Onset Date: Unknown Surgical History: Surgical History (Updated 11/18/18 @ 15:21 by Dillon Pal DO) History of cholecystectomy Onset Date: ~2006 History of colon resection Onset Date: ~2008 History of colonoscopy Onset Date: ~10/09/08 History of esophagogastroduodenoscopy (EGD) Onset Date: Unknown History of rectal surgery Onset Date: ~2015 History of toe surgery Onset Date: ~08/2018 History of tonsillectomy Onset Date: Unknown History of total left knee replacement Onset Date: ~11/14/14 Family History: Family History (Updated 03/30/18 @ 09:10 by Brisa Vail CMA) Father Myocardial infarction CHF (congestive heart failure) Mother Cancer lung Duodenal anomaly Social History: (Last Reviewed 06/08/19 @ 16:36 by Reyna Juárez RN) Social History: adopted: No foster care: No chcf: No Marital status: lives independently: No household members: spouse caregiver/support person: No current occupational status: retired Highest education level completed: Master's degree Service: No Tobacco: Smoking Status: Former smoker Alcohol: alcohol intake: current alcohol intake frequency: 0-2 drinks per day Substance Use: substance use type: does not use Dietary Habits: caffeine: Yes Type: carbonated beverages, coffee Physical Exam - Physical Exam General Appearance: Present: mild distress, anxious Head Exam: Present: normal inspection, no evidence of injury Eye Exam: Normal inspection: bilateral, PERRL: bilateral, EOMI: bilateral Ears, Nose, Throat: Present: normal ENT inspection, normal pharynx Neck: Present: normal inspection, nontender Respiratory: Present: no respiratory distress, normal breath sounds, no accessory muscle use, chest nontender, lungs clear Cardiovascular/Chest: Present: regular rate, rhythm, no murmur, normal peripheral pulses Gastrointestinal/Abdominal: Present: normal bowel sounds, nontender, nondistended, soft, no organomegaly Back Exam: Present: normal inspection, normal range of motion, no CVA tenderness, no vertebral tenderness Extremity Exam: Present: normal inspection, non-tender, normal range of motion, no edema Neurological Exam: Present: alert, oriented, normal mood/affect, no motor/sensory deficits Skin Exam: Present: normal color, warm/dry Lymphatic Exam: Present: no adenopathy Progress - Date and Time Seen: Date and Time: 06/08/19 16:40 [id number] unchanged, ccase discussed with dr mcrae, to admit to observation - Results and Orders Patient's Lab Results:: I have reviewed the patient's lab results. - Vital Signs Patient's Vital Signs:: I have reviewed the patient's vital signs. Vital Signs: Vital Signs 06/08/19 15:08 06/08/19 15:36 06/08/19 16:16 Temperature 36.2 C Pulse Rate 135 H 141 H 97 Respiratory Rate 18 Blood Pressure 106/65 129/75 O2 Sat by Pulse Oximetry 92 L 06/08/19 16:21 Temperature Pulse Rate 82 Respiratory Rate 13 Blood Pressure 111/55 O2 Sat by Pulse Oximetry 95 - X-Ray X-Ray #1 X-Ray: chest Interpretation: Interp. by me - no acute process - Progress/Reassessment Chief Complaint: Dyspnea Progress:: Unchanged - Transfer of Care Expected Disposition: Admit Plan - Plan Plan: to admit to observation Departure Clinical Impression: Atrial fibrillation with rapid ventricular response - Departure Disposition: Short Term Hospital Inpatient Condition: Serious Referrals: Blank Krueger MD [Primary Care Provider] -
[2019-06-08] MEDS ORDERED: METOPROLOL TARTRATE 25 MG TABLET PO ONE (18:00)
[2019-06-08] MEDS ORDERED: DILTIAZEM HCL 5 MG/ML VIAL IV PRN (18:28)
--- NOTE | 2019-06-08 18:34 | HP ---
Chief Complaint - Chief Complaint Date of Service: 06/08/19 Time of Service: 17:30 Chief Complaint: SOB History of Present Illness: Patient with PMHx of IBS, asthma, fibromyalgia previous colon cancer (treated with surgery, chemo, radiation 12 years ago) has been having some SOB for a couple of weeks. He was recently diagnosed with pneumonitis in the walk-in clinic. He saw his PCP today, who sent him to the ED for a heart rate in the 120's. He was in afib with RVR on EKG. TSH was normal, BNP mildly elevated at 2169, troponin of 0.029. He denies fevers, but has felt flushed. He's had a slight cough, but just here in the ED. No chest pain or current lower extremity swelling. He does report constipation and diarrhea at baseline. He's had some medication additions this week, including xanax for sleep, and 20 mg lasix for mild edema. Medical History (Updated 06/08/19 @ 18:34 by Yen Griffin DO) Osteoarthritis (Chronic) Onset Date: Unknown IBS (irritable bowel syndrome) (Chronic) Onset Date: Unknown Fibromyalgia (Chronic) Onset Date: Unknown Esophageal stenosis (Chronic) Onset Date: Unknown Diverticulitis of colon (Chronic) Onset Date: Unknown Pierre's esophagus (Chronic) Onset Date: Unknown Asthma (Chronic) Onset Date: Unknown Anxiety disorder (Chronic) Onset Date: ~09/30/12 H/O implanted metallic device Onset Date: ~2011 implant to help regulate bowels Interstim implant sacral neoromodulation Liver fibrosis Nonalcoholic steatohepatitis (GUTIERREZ) Onset Date: ~2017 DJD (degenerative joint disease) Onset Date: Unknown Cancer Onset Date: ~2008 DVT (deep venous thrombosis) Onset Date: ~11/27/13 Dysphagia Onset Date: Unknown Surgical History: Surgical History (Updated 11/18/18 @ 15:21 by Dillon Pal DO) History of cholecystectomy Onset Date: ~2006 History of colon resection Onset Date: ~2008 History of colonoscopy Onset Date: ~10/09/08 History of esophagogastroduodenoscopy (EGD) Onset Date: Unknown History of rectal surgery Onset Date: ~2015 History of toe surgery Onset Date: ~08/2018 History of tonsillectomy Onset Date: Unknown History of total left knee replacement Onset Date: ~11/14/14 Family History: Family History (Updated 03/30/18 @ 09:10 by Brisa Vail CMA) Father Myocardial infarction CHF (congestive heart failure) Mother Cancer lung Duodenal anomaly Social History: (Last Reviewed 06/08/19 @ 16:36 by Reyna Juárez RN) Social History: adopted: No foster care: No half-way: No Marital status: lives independently: No household members: spouse caregiver/support person: No current occupational status: retired Highest education level completed: Master's degree Service: No Tobacco: Smoking Status: Former smoker Alcohol: alcohol intake: current alcohol intake frequency: 0-2 drinks per day Substance Use: substance use type: does not use Dietary Habits: caffeine: Yes Type: carbonated beverages, coffee Review Of Systems (GEN) - Review of Systems Generalized/Overall Review: Absent: Fever EENTM: Absent: Throat Pain Respiratory: Present: Cough, Shortness of Breath. Absent: Wheezing Cardiac: Present: Edema, Syncope. Absent: Chest Pain Abdominal: Present: Constipation, Diarrhea. Absent: Nausea Genitourinary: Absent: Frequency Musculoskeletal: Present: Muscle Pain Neurological: Absent: Seizure Skin: Present: No Symptoms Reported Immunizations: IMMUNIZATION HX Immunizations Up to Date Yes History of Influenza Vaccine No Hx Pneumococcal Vaccination No Allergies/Adverse Reactions: Allergies Allergy/AdvReac Type Severity Reaction Status Date / Time peanut Allergy Severe THROAT Verified 06/08/19 13:33 SWELLS SHUT codeine AdvReac Mild BINDING Verified 06/08/19 13:33 Home Medications: HOME MEDICATIONS fluoxetine 20 mg capsule 20 mg PO DAILY #90 cap 09/28/18 [Last Taken Unknown] diphenoxylate-atropine 2.5 mg-0.025 mg tablet 2 tab PO ACHS #360 tab 01/08/19 [Last Taken Unknown] alprazolam 0.5 mg tablet 0.5 mg PO HS PRN #30 tab 06/04/19 [Last Taken Unknown] furosemide 20 mg tablet 20 mg PO DAILY #30 tab 06/04/19 [Last Taken Unknown] Exam - Exam Vital Signs: Vital Signs - Last Taken Temp 36.2 C 06/08/19 15:08 Pulse 100 06/08/19 18:06 Resp 20 06/08/19 18:01 BP 119/67 06/08/19 18:06 Pulse Ox 92 L 06/08/19 18:01 Constitutional: Present: Alert, Cooperative, Well developed, Well nourished, No distress ENT Exam: Present: moist mucous membranes Respiratory: Present: lungs clear, normal breath sounds Cardiovascular/Chest: Present: tachycardia - HR 110, irregularly irregular Abdomen: Present: soft, other - hyperactive bowel sounds Extremity: Absent: lower extremity edema Appearance: Present: appropriate appearance Eye contact: Present: cooperative Diagnostic Studies: Abnormal Lab Results 06/08/19 Range/Units 15:45 B-Natriuretic Peptide 2168 H (5-650) pg/mL Laboratory Results 0.029 ng/mL (0.00-0.10) 06/08/19 15:45 B-Natriuretic Peptide 2168 pg/mL (5-650) H 06/08/19 15:45 Assessment/Plan - Assessment/Plan (1) Atrial fibrillation with rapid ventricular response Assessment: He was given 20 mg cardizem in the ED, which improved his HR to the 90's, but it started to increase. He was started on a cardizem drip. Unfortunately, we do not have nursing staff for the SCU, so we will not be able to continue the cardizem drip. He was given 25 mg metroprolol tartrate an hour ago, and will give 10 mg IV cardizem if needed for sustained HR greater than 125. Can also increase the metoprolol dose if needed. His BP has been tolerating the cardizem thus far. Likely secondary to his recent pulmonary symptoms. Recommend outpatient echo after DC, and this has been ordered. He may also benefit from a stress test. TSH was normal. Repeat troponin pending. Will need to discuss anticoagulation. If he snores, will also need to discuss a sleep study after DC. Problem: Acute (2) Asthma Assessment: He is oxygenating well, and no wheeze on exam. He does not have prescription meds for asthma, and will hold off on adding albuterol, given his tachycardia. Problem: Chronic (3) IBS (irritable bowel syndrome) Problem: Chronic (4) Fibromyalgia Problem: Chronic
[2019-06-08] MEDS ORDERED: ALPRAZolam 0.5 MG TABLET PO PRN (19:04)
[2019-06-08] MEDS: DIPHENOXYLATE HCL/ATROP SULF 2.5 MG TABLET PO SCH (21:50)
[2019-06-08] MEDS ORDERED: ENOXAPARIN SODIUM 30 MG/0.3 ML SYRG SC SCH (22:00)
[2019-06-09] MEDS: DIPHENOXYLATE HCL/ATROP SULF 2.5 MG TABLET PO SCH ×3 (07:50→18:22)
[2019-06-09] MEDS ORDERED: METOPROLOL TARTRATE 50 MG TABLET PO SCH (09:00)
[2019-06-09] MEDS ORDERED: FLUoxetine HCL 20 MG CAPSULE PO SCH (09:00)
[2019-06-09] MEDS ORDERED: METOPROLOL TARTRATE 25 MG TABLET PO SCH (09:00)
[2019-06-09] MEDS ORDERED: FUROSEMIDE 20 MG TABLET PO SCH (09:00)
--- NOTE | 2019-06-09 14:01 | DS ---
(1) Atrial fibrillation with rapid ventricular response Problem: Resolved (2) Asthma Problem: Chronic (3) IBS (irritable bowel syndrome) Problem: Chronic (4) Fibromyalgia Problem: Chronic Date of Discharge:: 06/09/19 Description of Stay: Patient with PMHx of IBS, asthma, fibromyalgia previous colon cancer (treated with surgery, chemo, radiation 12 years ago) had been having some SOB for a couple of weeks. He was recently diagnosed with pneumonitis and atypical pneumonia in the walk-in clinic, and was prescribed azithromycin. He saw his PCP today, who sent him to the ED for a heart rate in the 120's. He was in afib with RVR on EKG. TSH was normal, BNP mildly elevated at 2169, troponin of 0.029. He denies fevers, but has felt flushed. He had a slight cough in the ED. No chest pain or current lower extremity swelling. He does report constipation and diarrhea at baseline. He's had some medication additions this week, including xanax for sleep, and 20 mg lasix for mild edema. He was given 20 mg cardizem in the ED, which improved his HR to the 90's, but it started to increase. He was started on a cardizem drip. Unfortunately, we did not have nursing staff for the SCU, so the cardizem drip was DC'd in the ED after he was given a dose of 25 mg metroprolol tartrate. His HR remained greater than 110 overnight, and his dose was increased to 50 mg in the morning. His BP has been tolerating the cardizem and metoprolol doses. He remained in the low 100's for several hours, and felt comfortable with discharge home. His [id number] score was mod-high risk of stroke, and HASBLED score was relatively low. Risks vs benefits of anticoagulation were discussed with him, and he agreed to start eliquis. It was felt that his afib was likely secondary to his pneumonia. Recommend outpatient echo after DC, and this has been ordered. He may also benefit from a stress test. Procedures Performed: none Results and Findings: Lab Pending Results 06/08/19 15:45: Troponin I 0.029, B-Natriuretic Peptide 2168 H 06/09/19 00:30: Troponin I 0.041 Discharge Location: Home Disposition: Home self-care Condition: Fair Discharge Activity: Activity as tolerated Discharge Diet: General/regular food Referrals: Blank Krueger MD [Primary Care Provider] - One Week Prescriptions (Any new or edited meds): Apixaban [Eliquis] 5 mg PO BID #180 tab Metoprolol Tartrate [Lopressor] 50 mg PO BID #180 tab Complete Home Medications List: Complete Home Medication List: fluoxetine 20 mg capsule 20 mg PO DAILY #90 cap 09/28/18 diphenoxylate-atropine 2.5 mg-0.025 mg tablet 2 tab PO ACHS #360 tab 01/08/19 alprazolam 0.5 mg tablet 0.5 mg PO HS PRN #30 tab 06/04/19 furosemide 20 mg tablet 20 mg PO DAILY #30 tab 06/04/19 Apixaban [Eliquis] 5 mg PO BID #180 tab 06/09/19 Metoprolol Tartrate [Lopressor] 50 mg PO BID #180 tab 06/09/19
[2019-06-09 18:33] VITALS: BP 108/59
[2019-06-09] MEDS ORDERED: APIXABAN 5 MG TABLET PO SCH (21:00)
== END 2019-06-09 18:50 | disposition home or self-care (01) ==
LOC: ER 15:04 → MS 15:04
PROVIDERS: ADMIT Family Medicine; ATTEND Family Medicine
CPT/HCPCS: 36415; 83519; 83880; 84484; 93005; 96365; 96366; 96375; 99285; G0378

== ENCOUNTER 2020-09-28 21:48 | Observation (INO) ==
[2020-09-28] MEDS ORDERED: NORMAL SALINE 1,000 ML IV ONE (22:13)
[2020-09-28] MEDS ORDERED: ONDANSETRON HCL/PF 2 MG/ML VIAL IV ONE (22:13)
--- NOTE | 2020-09-28 22:15 | ERNOTE ---
Abdominal HPI - Narrative Date of Service: 09/28/20 - General Chief Complaint: Abdominal Pain Time Seen by Provider: 09/28/20 23:00 Source: patient, family Exam Limitations: no limitations - Immun/Allergies/Home Medications Immunizatons: IMMUNIZATION HX Immunizations Up to Date Yes History of Influenza Vaccine Yes Hx Pneumococcal Vaccination Yes Allergies/Adverse Reactions: Allergies peanut Allergy (Severe, Verified 09/28/20 21:59) THROAT SWELLS SHUT codeine Adverse Reaction (Mild, Verified 09/28/20 21:59) BINDING Home Medications: HOME MEDICATIONS apixaban 5 mg tablet 5 mg PO BID #14 tab 06/09/19 [Last Taken Unknown] furosemide 40 mg tablet 40 mg PO DAILY 06/25/19 [Last Taken Unknown] metoprolol tartrate 25 mg tablet 25 mg PO BID 06/25/19 [Last Taken Unknown] diphenoxylate-atropine 2.5 mg-0.025 mg tablet 2 tab PO ACHS #360 tab 07/20/19 [Last Taken Unknown] fluoxetine 20 mg capsule 20 mg PO DAILY cap 10/08/19 [Last Taken Unknown] alprazolam 1 mg tablet 1 mg PO BID PRN #60 tab 12/03/19 [Last Taken Unknown] - Pain Score Pain Score #1 Pain Score: 7 Abdominal Pain Onset Location: generalized abdomen Pain Radiation: no radiation - History of Present Illness Narrative: Patient is very nice 79-year-old male presents to emergency room with a chief complaint of having no bowel movement for last 3 days and having minimal gas passing today. Patient past medical history significant for atrial fibrillation currently on Eliquis, multiple bowel obstruction episodes, colon cancer treated with light bowel resection. Chronic constipation. Patient reports that he usually has loose stool but for the last 3 days he has not had any bowel movement. Patient last meal was this afternoon and after that he got nauseous. Patient denies any blood in the stool. Patient passed gas about 5 PM and also in the emergency room. Patient also had some burping episodes in the emergency room which significantly improved the patient's pain. Patient last fluid drinking was about 3 hours ago. Patient reports the pain intensity 6 at 10 at this moment. Patient denies any chest pain, shortness of breath, headache, vision change. Patient is full code and at this moment he wants to continue the mechanical ventilation for 7 days. Patient does not look septic patient is pale but not significantly ill. Timing: constant Quality: moderate Modifying Factors - (Improves): Present: sitting up Modifying Factors - (Worsens): Present: eating Prior Abdominal Problems: Present: similar symptoms Prior Treatment: Present: recently hospitalized Review of Systems - Narrative Narrative: Mentioned in HPI Medical History (Last Reviewed 09/28/20 @ 23:02 by Sahara Mayes RN) Osteoarthritis (Chronic) Onset Date: Unknown IBS (irritable bowel syndrome) (Chronic) Onset Date: Unknown Fibromyalgia (Chronic) Onset Date: Unknown Esophageal stenosis (Chronic) Onset Date: Unknown Diverticulitis of colon (Chronic) Onset Date: Unknown Pierre's esophagus (Chronic) Onset Date: Unknown Asthma (Chronic) Onset Date: Unknown Anxiety disorder (Chronic) Onset Date: ~09/30/12 Colon cancer H/O implanted metallic device Onset Date: ~2011 implant to help regulate bowels Interstim implant sacral neoromodulation Liver fibrosis Nonalcoholic steatohepatitis (GUTIERREZ) Onset Date: ~2017 DJD (degenerative joint disease) Onset Date: Unknown Cancer Onset Date: ~2008 DVT (deep venous thrombosis) Onset Date: ~11/27/13 Dysphagia Onset Date: Unknown Surgical History: Surgical History (Last Reviewed 09/28/20 @ 23:02 by Sahara Mayes RN) History of cholecystectomy Onset Date: ~2006 History of colon resection Onset Date: ~2008 History of colonoscopy Onset Date: ~10/09/08 History of esophagogastroduodenoscopy (EGD) Onset Date: Unknown History of rectal surgery Onset Date: ~2015 History of toe surgery Onset Date: ~08/2018 History of tonsillectomy Onset Date: Unknown History of total left knee replacement Onset Date: ~11/14/14 Family History: Family History (Last Reviewed 09/28/20 @ 23:03 by Sahara Mayes RN) Father Myocardial infarction CHF (congestive heart failure) Mother Cancer lung Duodenal anomaly Social History: (Last Reviewed 09/28/20 @ 23:03 by Sahara Mayes RN) Social History: adopted: No foster care: No senior living: No Marital status: lives independently: No household members: spouse caregiver/support person: No current occupational status: retired Highest level of school completed/degree received: Master's degree Service: No Tobacco: Smoking Status: Former smoker Alcohol: alcohol intake: current alcohol intake frequency: 0-2 drinks per day Substance Use: substance use type: does not use Dietary Habits: caffeine: Yes Type: carbonated beverages Physical Exam - Physical Exam General Appearance: Present: wd/wn, alert, mild distress Head Exam: Present: normal inspection, no evidence of injury Eye Exam: Normal inspection: bilateral, PERRL: bilateral, EOMI: bilateral Ears, Nose, Throat: Present: normal ENT inspection Neck: Present: normal inspection, nontender Respiratory: Present: no respiratory distress, normal breath sounds, no accessory muscle use, chest nontender, lungs clear Cardiovascular/Chest: Present: regular rate, rhythm, no murmur, normal peripheral pulses Peripheral Pulses: N=norm/S=strong/W=weak/B=bound/A=absent: Carotid (R): Normal, Carotid (L): Normal, Radial (R): Normal, Radial (L): Normal, Dorsalis-pedis (R): Normal, Dorsalis-pedis (L): Normal Gastrointestinal/Abdominal: Present: tenderness, abnormal bowel sounds, guarding. Absent: rebound Rectal Exam: Present: nontender, normal rectal tone, heme negative stool, other - Digital rectal exam had normal consistency stool, normal brown color, no blood nor tarry, no abnormal smell. Absent: normal prostate, black stool, blood- streaked stool, tenderness, decreased tone, mass, fecal impaction, hemorrhoids Back Exam: Present: normal inspection, normal range of motion, no CVA tenderness, no vertebral tenderness Extremity Exam: Present: normal inspection, non-tender, normal range of motion, no edema Neurological Exam: Present: alert, oriented, normal mood/affect, no motor/sensory deficits DTR: N=norm/NB=norm/brisk/A=abs/DD=dull/dimin/HC=hyperactive: Bicep (R): Normal, Bicep (L): Normal, Tricep (R): Normal, Tricep (L): Normal, Ankle (R): Normal, Ankle (L): Normal Skin Exam: Present: normal color, pallor - Patient was initially pale but significantly improved after the medical management. Lymphatic Exam: Present: no adenopathy Progress - Vital Signs Vital Signs: Vital Signs 09/28/20 21:57 Temperature 35.7 C L Pulse Rate 100 Respiratory Rate 13 Blood Pressure 147/68 O2 Sat by Pulse Oximetry 99 - X-Ray X-Ray #1 X-Ray: chest - Normal cardiopulmonary findings no consolidation - Progress/Reassessment Chief Complaint: Abdominal Pain Plan - Plan Plan: Patient tolerated the CT scan with the IV contrast after having the kidney func tion results back. Clinical findings are more compatible with partial moderate small bowel obstruction mainly over the strictured area due to previous surgery. Due to possible enteritis mentioned in the CT scan report we started Rocephin and metronidazole for the patient Patient will be admitted to the hospital after talking to our hospitalist I personally appreciate her help. Patient will be under observation for partial bowel obstruction patient does not need any NG tube at this moment patient will be managed with IV fluid. Departure Clinical Impression: Hypokalemia, Dehydration Bowel obstruction Qualifiers: Intestinal obstruction type: obstruction due to adhesions Intestinal o bstruction extent: partial Qualified Code(s): K56.51 - Intestinal adhesions [bands], with partial obstruction - Departure Disposition: Still a patient Condition: Good
[2020-09-28 22:32] LABS: Hematocrit 40.2 % (42.0-52.0); Hemoglobin 13.5 gm/dL (13.5-18.0); Mean Cell Volume 103.6 fl (78-100); Mean Corpuscular Hemoglobin 34.8 pg (27-31); Mean Corpuscular Hgb Conc 33.6 g/dl (32-36); Mean Platelet Volume 10.2 fl (8-11.3); Neutrophil # 4.2 K/mm3 (1.3-6.0); Neutrophil % 81.7 % (42-75.0); Platelet Count 120 K/mm3 (150-450); Red Blood Count 3.88 M/mm3 (4.7-6.0); Red Cell Distribution Width 14.7 % (11.5-14.0); White Blood Count 5.2 K/mm3 (4.0-10.5)
[2020-09-28 22:42] LABS: Prothrombin Time (Patient) 12.5 Seconds (9.1-10.7)
[2020-09-28 22:45] LABS: Albumin * 3.9 gm/dl (3.4-5.0); Anion Gap 11.6 mmol/L (6.8-13.8); BUN/Creatinine Ratio 13.8 (9.0-21.6); Bilirubin, Total 2.5 mg/dL (0.0-1.1); Ca. Corrected For Albumin 8.6 mg/dL (8.4-10.2); Calcium * 8.8 mg/dL (7.9-10.9); Carbon Dioxide 30.7 mmol/L (24-32.6); INR 1.27 INR (0.92-1.08); Magnesium 1.7 mg/dL (1.2-2.8); Potassium 3.3 mmol/L (3.4-4.6); Total Protein 7.6 gm/dL (6.2-8.2)
[2020-09-28] MEDS ORDERED: POTASSIUM CHLORIDE IN WATER 100 ML IV ONE (23:03)
[2020-09-28 23:46] LABS: Urine Bilirubin 1 mg/dl (NEGATIVE); Urine Ketone Negative (NEGATIVE); Urine Nitrite Negative (NEGATIVE); Urine Protein Negative (NEGATIVE); Urine Specific Gravity 1.015 SP.GR. (1.005-1.030); Urine Urobilinogen 4 EU/dl (NORMAL); Urine pH 6.5 pH (5.0-7.0)
[2020-09-29] LABS: Urine Appearance Clear (CLEAR); Urine Bacteria None Seen; Urine Blood 5 /ul (NEGATIVE); Urine Color Dark Yellow; Urine RBC None Seen /hpf (0-5); Urine WBC None Seen /hpf (0-5)
[2020-09-29] MEDS ORDERED: cefTRIAXone SODIUM 1,000 MG/100 ML BAG IV ONE (00:44)
[2020-09-29] MEDS ORDERED: ALPRAZolam 0.25 MG TABLET PO ONE (00:45)
[2020-09-29] MEDS ORDERED: MORPHINE SULFATE 2 MG/ML DISP.SYRIN IV PRN (00:46)
[2020-09-29] MEDS: metroNIDAZOLE/SODIUM CHLORIDE 500 MG/100 ML BAG IV SCH ×2 (01:41→08:57)
[2020-09-29] MEDS ORDERED: ACETAMINOPHEN 325 MG TABLET PO PRN (10:24)
[2020-09-29] MEDS ORDERED: ALPRAZolam 1 MG TABLET PO PRN (10:26)
[2020-09-29] MEDS ORDERED: POTASSIUM CHLORIDE 20 MEQ TABLET.SA PO ONE ×2 (10:28→11:45)
--- NOTE | 2020-09-29 11:00 | HP ---
Chief Complaint - Chief Complaint Date of Service: 09/29/20 Time of Service: 10:48 Chief Complaint: I have abdominal pain and constipation for several days now. History of Present Illness: 79-year-old male with past medical history of atrial fibrillation on Eliquis, hypertension, colon cancer, status post bowel resection, status post cholecystectomy, anxiety, and depression was evaluated in the ER last night for generalized abdominal pain and constipation of more than 3 days duration. Patient has a history of colon cancer that was treated with bowel resection and since then he has had multiple bouts of partial and complete bowel obstruction alternating with loose stools or diarrhea. The patient has known adhesions in his intestines which also increases his risk of developing obstruction. He denies taking any antidiarrheal in the past few days. Abdominal CT obtained in the ER revealed partial obstruction but no diverticulitis or other infectious process, he did however had some fat stranding in the right lower quadrant. The patient was given pain medications and IV antibiotics while in the ER and was brought to the [facility] floor. Since arriving he has not had any bowel movements and continues to complain of abdominal discomfort and nausea. Physical exam done this morning at bedside was significant for epigastric and left upper and lower quadrant tenderness, the patient was also mildly distended. He has not been given any laxative since arriving or anything to promote bowel movements, so MiraLAX and enema as well as stool softeners were added to his list of treatment to encourage bowel movement. Medical History (Last Reviewed 09/28/20 @ 23:02 by Sahara Mayes RN) Osteoarthritis (Chronic) Onset Date: Unknown IBS (irritable bowel syndrome) (Chronic) Onset Date: Unknown Fibromyalgia (Chronic) Onset Date: Unknown Esophageal stenosis (Chronic) Onset Date: Unknown Diverticulitis of colon (Chronic) Onset Date: Unknown Pierre's esophagus (Chronic) Onset Date: Unknown Asthma (Chronic) Onset Date: Unknown Anxiety disorder (Chronic) Onset Date: ~09/30/12 Colon cancer H/O implanted metallic device Onset Date: ~2011 implant to help regulate bowels Interstim implant sacral neoromodulation Liver fibrosis Nonalcoholic steatohepatitis (GUTIERREZ) Onset Date: ~2017 DJD (degenerative joint disease) Onset Date: Unknown Cancer Onset Date: ~2008 DVT (deep venous thrombosis) Onset Date: ~11/27/13 Dysphagia Onset Date: Unknown Surgical History: Surgical History (Last Reviewed 09/28/20 @ 23:02 by Sahara Mayes RN) History of cholecystectomy Onset Date: ~2006 History of colon resection Onset Date: ~2008 History of colonoscopy Onset Date: ~10/09/08 History of esophagogastroduodenoscopy (EGD) Onset Date: Unknown History of rectal surgery Onset Date: ~2015 History of toe surgery Onset Date: ~08/2018 History of tonsillectomy Onset Date: Unknown History of total left knee replacement Onset Date: ~11/14/14 Family History: Family History (Last Reviewed 09/28/20 @ 23:03 by Sahara Mayes RN) Father Myocardial infarction CHF (congestive heart failure) Mother Cancer lung Duodenal anomaly Social History: (Last Reviewed 09/28/20 @ 23:03 by Sahara Mayes RN) Social History: adopted: No foster care: No care home: No Marital status: lives independently: No household members: spouse caregiver/support person: No current occupational status: retired Highest level of school completed/degree received: Master's degree Service: No Tobacco: Smoking Status: Former smoker Alcohol: alcohol intake: current alcohol intake frequency: 0-2 drinks per day Substance Use: substance use type: does not use Dietary Habits: caffeine: Yes Type: carbonated beverages Peds Patient Hx - Developmental: No Pertinent Hx Peds Patient Hx - Medical: No Pertinent Hx Peds Patient Hx - Cardiac/Respiratory: No Pertinent Hx Peds Patient Hx - Surgical: No Surgical History Patient History - Cancer: Colon Review Of Systems (GEN) - Review of Systems Generalized/Overall Review: Present: No Symptoms Reported EENTM: Present: No Symptoms Reported Respiratory: Present: No Symptoms Reported Cardiac: Present: No Symptoms Reported Abdominal: Present: Nausea, Abdominal Pain, Constipation Genitourinary: Present: No Symptoms Reported Musculoskeletal: Present: No Symptoms Reported Neurological: Present: No Symptoms Reported Skin: Present: No Symptoms Reported Endocrine: Present: No Symptoms Reported Immunizations: IMMUNIZATION HX Immunizations Up to Date Yes History of Influenza Vaccine Yes Hx Pneumococcal Vaccination Yes Allergies/Adverse Reactions: Allergies Allergy/AdvReac Type Severity Reaction Status Date / Time peanut Allergy Severe THROAT Verified 09/28/20 21:59 SWELLS SHUT codeine AdvReac Mild BINDING Verified 09/28/20 21:59 Home Medications: HOME MEDICATIONS apixaban 5 mg tablet 5 mg PO BID #14 tab 09/28/19 [Last Taken Unknown] furosemide 40 mg tablet 40 mg PO DAILY 06/25/19 [Last Taken Unknown] metoprolol tartrate 25 mg tablet 25 mg PO BID 06/25/19 [Last Taken Unknown] diphenoxylate-atropine 2.5 mg-0.025 mg tablet 2 tab PO ACHS #360 tab 07/20/19 [Last Taken Unknown] fluoxetine 20 mg capsule 20 mg PO DAILY cap 10/08/19 [Last Taken Unknown] alprazolam 1 mg tablet 1 mg PO BID PRN #60 tab 12/03/19 [Last Taken Unknown] Exam - Exam Vital Signs: Vital Signs - Last Taken Temp 36.8 C 09/29/20 10:00 Pulse 80 09/29/20 10:00 Resp 18 09/29/20 10:00 BP 120/66 09/29/20 10:00 Pulse Ox 95 09/29/20 10:00 Constitutional: Present: Alert, Oriented x3, Cooperative, Well developed, Well nourished, No distress, Elderly Eye Exam: bilateral eye: normal inspection, PERRL, EOMI Neck: Present: non-tender, full range of motion, supple, normal inspection, trachea midline Back Exam: Present: normal inspection, no CVA tenderness, no vertebral tenderness Breasts: Present: Exam deferred Respiratory: Present: chest non-tender, lungs clear, normal breath sounds, no respiratory distress, no accessory muscle use Cardiovascular/Chest: Present: normal peripheral pulses, regular rate, rhythm, no chest tenderness, no edema, no gallop, no JVD, no murmur, no rub Abdomen: Present: no masses, obese, tender - Tenderness in epigastrium and left upper and lower quadrants., distended, hypoactive /Rectal: Present: Exam deferred Extremity: Present: normal range of motion, non-tender, normal inspection, no pedal edema, no calf tenderness, normal capillary refill, pelvis stable Skin Exam: Present: normal color, warm/dry, no cyanosis Lymphatic: Present: no adenopathy Neurologic: Present: structures mechanic II-XII nml as tested, no motor/sensory deficits, alert, normal mood/affect, oriented x 3 Appearance: Present: appropriate appearance, appropriate insight, neat, no memory impairment Eye contact: Present: cooperative, good eye contact, normal speech Thoughts: Present: normal thought pattern, no apparent hallucination Diagnostic Studies: Abnormal Lab Results 09/28/20 09/28/20 09/28/20 Range/Units 22:20 22:20 22:20 RBC 3.88 L (4.7-6.0) M/mm3 Hct 40.2 L (42.0-52.0) % MCV 103.6 H (78-100) fl MCH 34.8 H (27-31) pg RDW 14.7 H (11.5-14.0) % Plt Count 120 L (150-450) K/mm3 Neutrophils % 81.7 H (42-75.0) % Lymphocytes % 11.3 L (20-51) % Lymphocytes # 0.58 L (1.5-3.5) k/mm3 PT 12.5 H (9.1-10.7) Seconds INR (Anticoag Therapy) 1.27 H (0.92-1.08) INR Potassium 3.3 L (3.4-4.6) mmol/L Creatinine 1.52 H (0.4-1.4) mg/dL Est GFR (Non-Af Amer) 47 L (60-130) mL/min Random Glucose 130 H (70-110) mg/dL Total Bilirubin 2.5 H (0.0-1.1) mg/dL Urine Blood (NEGATIVE) /ul Urine Bilirubin (NEGATIVE) mg/dl Urine Urobilinogen (NORMAL) EU/dl 09/28/20 Range/Units 23:34 RBC (4.7-6.0) M/mm3 Hct (42.0-52.0) % MCV (78-100) fl MCH (27-31) pg RDW (11.5-14.0) % Plt Count (150-450) K/mm3 Neutrophils % (42-75.0) % Lymphocytes % (20-51) % Lymphocytes # (1.5-3.5) k/mm3 PT (9.1-10.7) Seconds INR (Anticoag Therapy) (0.92-1.08) INR Potassium (3.4-4.6) mmol/L Creatinine (0.4-1.4) mg/dL Est GFR (Non-Af Amer) (60-130) mL/min Random Glucose (70-110) mg/dL Total Bilirubin (0.0-1.1) mg/dL Urine Blood 5 H (NEGATIVE) /ul Urine Bilirubin 1 H (NEGATIVE) mg/dl Urine Urobilinogen 4 H (NORMAL) EU/dl Laboratory Results WBC 5.2 K/mm3 (4.0-10.5) 09/28/20 22:20 RBC 3.88 M/mm3 (4.7-6.0) L 09/28/20 22:20 Hgb 13.5 gm/dL (13.5-18.0) 09/28/20 22:20 Hct 40.2 % (42.0-52.0) L 09/28/20 22:20 MCV 103.6 fl (78-100) H 09/28/20 22:20 MCH 34.8 pg (27-31) H 09/28/20 22:20 MCHC 33.6 g/dl (32-36) 09/28/20 22:20 RDW 14.7 % (11.5-14.0) H 09/28/20 22:20 Plt Count 120 K/mm3 (150-450) L 09/28/20 22:20 MPV 10.2 fl (8-11.3) 09/28/20 22:20 Immature Gran % (Auto) 0.20 % (0.001-0.429) 09/28/20 22:20 Immature Gran # (Auto) 0.01 K/mm3 (0.000-0.0310) 09/28/20 22:20 Neutrophils % 81.7 % (42-75.0) H 09/28/20 22:20 Lymphocytes % 11.3 % (20-51) L 09/28/20 22:20 Monocytes % 6.2 % (0.0-9) 09/28/20 22:20 Eosinophils % 0.4 % (0.0-3.0) 09/28/20 22:20 Basophils % 0.2 % (0.0-1.0) 09/28/20 22:20 Nucleated RBC % 0.0 k/mm3 (0-1) 09/28/20 22:20 Neutrophils # 4.2 K/mm3 (1.3-6.0) 09/28/20 22:20 Lymphocytes # 0.58 k/mm3 (1.5-3.5) L 09/28/20 22:20 Monocytes # 0.3 k/mm3 (0.0-1.0) 09/28/20 22:20 Eosinophils # 0.0 k/mm3 (0.0-0.7) 09/28/20 22:20 Absolute Basophils 0.0 k/mm3 (0.0-0.1) 09/28/20 22:20 PT 12.5 Seconds (9.1-10.7) H 09/28/20 22:20 INR (Anticoag Therapy) 1.27 INR (0.92-1.08) H 09/28/20 22:20 PTT (Mary) 29.0 Seconds (24-32) 09/28/20 22:20 Sodium 141 mmol/L (132-142) 09/28/20 22:20 Plasma Sodium 141 mmol/L (130-142) 09/28/20 22:20 Potassium 3.3 mmol/L (3.4-4.6) L 09/28/20 22:20 Chloride 102 mmol/L (97-106) 09/28/20 22:20 Carbon Dioxide 30.7 mmol/L (24-32.6) 09/28/20 22:20 Anion Gap 11.6 mmol/L (6.8-13.8) 09/28/20 22:20 BUN 21 mg/dL (6-23) 09/28/20 22:20 Creatinine 1.52 mg/dL (0.4-1.4) H 09/28/20 22:20 Est GFR (Non-Af Amer) 47 mL/min (60-130) L 09/28/20 22:20 BUN/Creatinine Ratio 13.8 (9.0-21.6) 09/28/20 22:20 Random Glucose 130 mg/dL (70-110) H 09/28/20 22:20 Lactic Acid, Venous 1.7 mmol/L (0.4-2.0) 09/28/20 22:20 Calcium 8.8 mg/dL (7.9-10.9) 09/28/20 22:20 Calcium Adj for Albumin 8.6 mg/dL (8.4-10.2) 09/28/20 22:20 Magnesium 1.7 mg/dL (1.2-2.8) 09/28/20 22:20 Total Bilirubin 2.5 mg/dL (0.0-1.1) H 09/28/20 22:20 AST 44 U/L (0-48) 09/28/20 22:20 ALT 43 U/L (19-67) 09/28/20 22:20 Alkaline Phosphatase 69 U/L (50-170) 09/28/20 22:20 Total Protein 7.6 gm/dL (6.2-8.2) 09/28/20 22:20 Albumin 3.9 gm/dl (3.4-5.0) 09/28/20 22:20 Urine Color Dark yellow 09/28/20 23:34 Urine Appearance Clear (CLEAR) 09/28/20 23:34 Urine pH 6.5 pH (5.0-7.0) 09/28/20 23:34 Ur Specific [place] 1.015 SP.GR. (1.005-1.030) 09/28/20 23:34 Urine Protein Negative mg/dL (NEGATIVE) 09/28/20 23:34 Urine Glucose (UA) Negative mg/dL (NEGATIVE) 09/28/20 23:34 Urine Ketones Negative mg/dL (NEGATIVE) 09/28/20 23:34 Urine Blood 5 /ul (NEGATIVE) H 09/28/20 23:34 Urine Nitrate Negative (NEGATIVE) 09/28/20 23:34 Urine Bilirubin 1 mg/dl (NEGATIVE) H 09/28/20 23:34 Urine Urobilinogen 4 EU/dl (NORMAL) H 09/28/20 23:34 Ur Leukocyte Esterase Negative /ul (NEGATIVE) 09/28/20 23:34 Urine RBC None seen /hpf (0-5) 09/28/20 23:34 Urine WBC None seen /hpf (0-5) 09/28/20 23:34 Ur Epithelial Cells None seen /hpf (0-5) 09/28/20 23:34 Urine Bacteria None seen (NONE) 09/28/20 23:34 Urine Culture Comments No culture indicated 09/28/20 23:34 Stool Occult Blood Negative 09/29/20 00:40 SARS-CoV-2 (PCR) Not detected (NotDetected) 09/29/20 01:00 Assessment/Plan - Narrative Narrative: Patient was evaluated medical chart was reviewed and decision to admit to [facility] for observation of recurrence of constipation and generalized abdominal pain was made. The patient reports improvement in his abdominal pain but was found to be significantly tender on palpation which is compatible with chronic constipation. In an effort to encourage him to move his bowel we will administer a laxative, stool softeners, and an enema. We will follow up throughout the day. - Assessment/Plan (1) Partial small bowel obstruction Problem: Acute (2) Osteoarthritis Problem: Chronic (3) IBS (irritable bowel syndrome) Problem: Chronic (4) Pierre's esophagus Problem: Chronic (5) Anxiety disorder Problem: Chronic Qualifiers: Anxiety disorder type: generalized anxiety disorder (6) Abdominal pain Problem: Acute (7) H/O resection of large bowel Problem: Chronic (8) Intestinal adhesions [bands], with partial obstruction Problem: Chronic (9) H/O malignant neoplasm of colon Problem: Acute (10) Atrial fibrillation Problem: Acute (11) Chronic anticoagulation Problem: Acute (12) Chronic constipation with overflow Problem: Acute
[2020-09-29] MEDS: APIXABAN 5 MG TABLET PO SCH ×2 (11:44→21:03)
[2020-09-29] MEDS: FLUoxetine HCL 20 MG CAPSULE PO SCH (11:44)
[2020-09-29] MEDS: METOPROLOL TARTRATE 25 MG TABLET PO SCH ×2 (11:44→21:03)
[2020-09-29] MEDS: SENNOSIDES/DOCUSATE SODIUM 1 TAB TABLET PO SCH ×2 (11:44→21:04)
[2020-09-29] MEDS: POLYETHYLENE GLYCOL 3350 17 GM PACKET PO SCH ×2 (11:44→21:55)
[2020-09-29] MEDS: FUROSEMIDE 40 MG TABLET PO SCH (11:44)
[2020-09-29] MEDS ORDERED: SODIUM, POTASSIUM,MAG SULFATES 1 KIT KIT PO ONE (13:16)
[2020-09-29] MEDS ORDERED: ONDANSETRON HCL/PF 2 MG/ML VIAL IV PRN (14:51)
[2020-09-29] MEDS: NORMAL SALINE 1,000 ML IV PRN ×2 (15:54→22:54)
[2020-09-29] MEDS: PANTOPRAZOLE SODIUM 20 MG TABLET.DR PO SCH (21:03)
[2020-09-30] MEDS: NORMAL SALINE 1,000 ML IV PRN ×2 (05:36→12:27)
[2020-09-30 07:05] LABS: Albumin * 2.9 gm/dl (3.4-5.0); BUN/Creatinine Ratio 12.8 (9.0-21.6); Bilirubin, Total 1.8 mg/dL (0.0-1.1); Ca. Corrected For Albumin 8.5 mg/dL (8.4-10.2); Calcium * 7.9 mg/dL (7.9-10.9); Carbon Dioxide 30.9 mmol/L (24-32.6); Potassium 3.9 mmol/L (3.4-4.6); Total Protein 6.2 gm/dL (6.2-8.2)
[2020-09-30] MEDS: APIXABAN 5 MG TABLET PO SCH (08:42)
[2020-09-30] MEDS: SENNOSIDES/DOCUSATE SODIUM 1 TAB TABLET PO SCH (08:42)
[2020-09-30] MEDS: FUROSEMIDE 40 MG TABLET PO SCH (08:42)
[2020-09-30] MEDS: PANTOPRAZOLE SODIUM 20 MG TABLET.DR PO SCH (08:42)
[2020-09-30] MEDS: METOPROLOL TARTRATE 25 MG TABLET PO SCH (08:43)
[2020-09-30] MEDS: FLUoxetine HCL 20 MG CAPSULE PO SCH (08:43)
[2020-09-30] MEDS: POLYETHYLENE GLYCOL 3350 17 GM PACKET PO SCH (08:44)
--- NOTE | 2020-09-30 14:54 | DS ---
(1) Partial small bowel obstruction Problem: Resolved (2) Osteoarthritis Problem: Chronic (3) IBS (irritable bowel syndrome) Problem: Chronic (4) Pierre's esophagus Problem: Chronic (5) Anxiety disorder Problem: Chronic Qualifiers: Anxiety disorder type: generalized anxiety disorder (6) Abdominal pain Problem: Resolved (7) H/O resection of large bowel Problem: Chronic (8) Intestinal adhesions [bands], with partial obstruction Problem: Chronic (9) H/O malignant neoplasm of colon Problem: Acute (10) Atrial fibrillation Problem: Chronic (11) Chronic anticoagulation Problem: Chronic (12) Chronic constipation with overflow Problem: Chronic Date of Discharge:: 09/30/20 Hospital Course: 79-year-old male admitted for partial bowel obstruction and abdominal pain as well as chronic constipation was evaluated bedside was found to be afebrile and in no acute distress. Patient has shown clinical improvement since arriving at our facility. He had 2 bowel movements in the last 24 hours last one being this morning when staff report a large passage of loose stools. With that the patient reported improvement of his abdominal pain and bloating. He also benefited from the insertion of a nasogastric tube which was inserted yesterday after the patient started vomiting bilious fluid, since then the vomiting has stopped and the patient's nausea improved. On physical exam the patient continues to have pain on deep palpation but it was explained to him that that will be present for several additional days especially as you restart oral intake. He was instructed to eat slow and not to drink immediately after eating to avoid bowel overload. He was also instructed to continue taking MiraLAX twice a day for the next 5 days and to follow-up with his PCP to determine if he would need to stay on it for a longer period of time. Patient maintained stable vitals during hospitalization and aside from his GI issues he denied any other concerns. Therefore we will discharge him home. Procedures Performed: see notes below List Procedures: Insertion of nasogastric tube, with subsequent clamping and removal. Results and Findings: Pending Mircobiology Results 09/28/20 22:30 Blood Blood Culture - Preliminary NO GROWTH 24 HOURS 09/28/20 22:20 Blood Blood Culture - Preliminary NO GROWTH 24 HOURS Lab Pending Results 09/28/20 22:20: WBC 5.2, RBC 3.88 L, Hgb 13.5, Hct 40.2 L, MCV 103.6 H, MCH 34.8 H, MCHC 33.6, RDW 14.7 H, Plt Count 120 L, MPV 10.2, Immature Gran % (Auto) 0.20, Immature Gran # (Auto) 0.01, Neutrophils % 81.7 H, Lymphocytes % 11.3 L, Monocytes % 6.2, Eosinophils % 0.4, Basophils % 0.2, Nucleated RBC % 0.0, Neutrophils # 4.2, Lymphocytes # 0.58 L, Monocytes # 0.3, Eosinophils # 0.0, Absolute Basophils 0.0 09/28/20 22:20: Sodium 141, Plasma Sodium 141, Potassium 3.3 L, Chloride 102, Carbon Dioxide 30.7, Anion Gap 11.6, BUN 21, Creatinine 1.52 H, Est GFR (Non-Af Amer) 47 L, BUN/Creatinine Ratio 13.8, Random Glucose 130 H, Calcium 8.8, Calcium Adj for Albumin 8.6, Magnesium 1.7, Total Bilirubin 2.5 H, AST 44, ALT 43, Alkaline Phosphatase 69, Total Protein 7.6, Albumin 3.9 09/28/20 22:20: Lactic Acid, Venous 1.7 09/28/20 22:20: PT 12.5 H, INR (Anticoag Therapy) 1.27 H, PTT (Mary) 29.0 09/28/20 23:34: Urine Color Dark yellow, Urine Appearance Clear, Urine pH 6.5, U r Specific [place] 1.015, Urine Protein Negative, Urine Glucose (UA) Negative, Urine Ketones Negative, Urine Blood 5 H, Urine Nitrate Negative, Urine Bilirubin 1 H, Urine Urobilinogen 4 H, Ur Leukocyte Esterase Negative, Urine RBC None seen, Urine WBC None seen, Ur Epithelial Cells None seen, Urine Bacteria None seen, Urine Culture Comments No culture indicated 09/29/20 00:40: Stool Occult Blood Negative 09/29/20 01:00: SARS-CoV-2 (PCR) Not detected 09/30/20 06:20: Sodium 149 H, Plasma Sodium 149 H, Potassium 3.9, Chloride 110 H, Carbon Dioxide 30.9, Anion Gap 12.0, BUN 19, Creatinine 1.48 H, Est GFR (Non- Af Amer) 49 L, BUN/Creatinine Ratio 12.8, Random Glucose 118 H, Calcium 7.9, Calcium Adj for Albumin 8.5, Total Bilirubin 1.8 H, AST 34, ALT 36, Alkaline Phosphatase 58, Total Protein 6.2, Albumin 2.9 L Discharge Location: Home Disposition: Home self-care Condition: Good Face to Face Encounter completed per [facility] Guidelines: No Discharge Activity: Activity as tolerated Discharge Diet: [facility] soft Referrals: Yuniel Wong MD [Primary Care Provider] - Prescriptions (Any new or edited meds): Sennosides/Docusate Sodium [Docuzen Tablet] 1 ea PO BID #60 tab Transmission Status: Pending to [facility] #[id number] Polyethylene Glycol 3350 [Gavilax] 17 gm PO BID PRN #10 powd.pack PRN Reason: Constipation Transmission Status: Pending to [facility] #[id number] Ondansetron HCl [Zofran] 4 mg PO Q4H #30 tab Transmission Status: Pending to [facility] #[id number] Complete Home Medications List: Complete Home Medication List: apixaban 5 mg tablet 5 mg PO BID #14 tab 06/09/19 furosemide 40 mg tablet 40 mg PO DAILY 06/25/19 metoprolol tartrate 25 mg tablet 25 mg PO BID 06/25/19 diphenoxylate-atropine 2.5 mg-0.025 mg tablet 2 tab PO ACHS #360 tab 07/20/19 fluoxetine 20 mg capsule 20 mg PO DAILY cap 10/08/19 alprazolam 1 mg tablet 1 mg PO BID PRN #60 tab 12/03/19 Ondansetron HCl [Zofran] 4 mg PO Q4H #30 tab 09/30/20 Polyethylene Glycol 3350 [Gavilax] 17 gm PO BID PRN #10 powd.pack 09/30/20 Sennosides/Docusate Sodium [Docuzen Tablet] 1 ea PO BID #60 tab 09/30/20
[2020-09-30 15:43] VITALS: BP 143/75
== END 2020-09-30 16:12 | disposition home or self-care (01) ==
LOC: ER 21:48 → INTOOBSV 09-29 00:54 → MS 09-29 00:54
PROVIDERS: ADMIT Family Medicine; ATTEND Family Medicine